=== PATIENT | male | born 1985 | race Caucasian/White ===

== ENCOUNTER 2018-05-13 11:29 | Inpatient (IN) | payer MEDICAID ==
[~2018-05-13] VITALS: Ht 165.1 cm; Wt 68.0 kg
[2018-05-13 11:36] VITALS: BP 124/69
--- NOTE | 2018-05-13 11:43 | NUR ---
Patient ambulated to bed 3. RN evaluating patient at bedside.
--- NOTE | 2018-05-13 11:45 | NUR ---
PATIENT PRESENTS TO ED WITH C/O ABDOMINAL PAIN X 3 DAYS; DENIES N/V/D OR DIZZINESS HX; DENIES RX; DENIES SKIN IS PINK/WARM/DRY; AAOX4 WITH EVEN AND STEADY GAIT; LUNGS CLEAR BL; HR EVEN AND REGULAR; PT DENIES ANY FEVER, CP, SOB, OR COUGH AT THIS TIME; PATIENT STATES PAIN OF 10/10 AT THIS TIME; VSS; PATIENT POSITIONED FOR COMFORT; HOB ELEVATED; BEDRAILS UP X2; BED DOWN. ER MD MADE AWARE OF PT STATUS.
[2018-05-13] MEDS ORDERED: NACL 0.9% 1,000 ML IV SCH (12:16)
[2018-05-13] MEDS ORDERED: MORPHINE SULFATE 2 MG/ML SYR IVP ONE (12:20)
[2018-05-13] MEDS ORDERED: KETOROLAC 30 MG/ML VIAL IVP ONE (12:20)
[2018-05-13] MEDS ORDERED: GLYCOPYRROLATE 0.2 MG/ML VIAL IV ONE (12:20)
[2018-05-13] MEDS ORDERED: METOCLOPRAMIDE 10 MG/2 ML INJ VIAL IVP ONE (12:20)
--- NOTE | 2018-05-13 13:00 | NUR ---
Patient appears to be resting comfortably in bed. Vital Signs within normal limits. Respirations even and unlabored.
[2018-05-13 13:20] LABS: HEMATOCRIT 38.9 % (36-52); HEMOGLOBIN 13.3 g/dL (12.0-18.0); MEAN CORPUSCULAR HEMOGLOBIN 31 pg (27-31); MEAN CORPUSCULAR HGB CONC 34 g/dL (33-37); PLATELET COUNT (AUTO) 198 K/uL (140-450); RED BLOOD CELL COUNT(AUTO) 4.36 MIL/uL (4.20-6.10); RED CELL DISTRIBUTION WIDTH 13.1 % (11.6-13.7); WHITE BLOOD COUNT (AUTO) 13.1 K/uL (4.8-10.8)
[2018-05-13 13:29] LABS: ANION GAP 11.9 (8-16); CARBON DIOXIDE 25.8 mmol/L (21-32); CREATININE 0.7 mg/dL (0.7-1.3); POTASSIUM 3.7 mmol/L (3.5-5.1)
[2018-05-13 13:32] LABS: ALBUMIN 3.1 g/dL (3.4-5.0); BASOPHILS % (MANUAL) 0 % (0-2); EOSINOPHILS % (MANUAL) 0 % (0-4); LYMPHOCYTES % (MANUAL) 12 % (20-46); MONOCYTES % (MANUAL) 5 % (5-12); TOTAL BILIRUBIN 0.4 mg/dL (0.0-1.0)
[2018-05-13] MEDS ORDERED: PIPERACILLIN/TAZOBACTAM 3.375 GM in DEXTROSE 5% 50 ML IV ONE (13:40)
[2018-05-13 13:41] LABS: BILIRUBIN,URINE NEGATIVE (NEGATIVE); BLOOD, URINE NEGATIVE (NEGATIVE); COLOR,URINE YELLOW (YELLOW); LEUKOCYTE ESTERASE ,URINE NEGATIVE (NEGATIVE); NITRITE, URINE NEGATIVE (NEGATIVE); UGLUCOSE NEGATIVE (NEGATIVE)
[2018-05-13 13:42] LABS: APPEARANCE,URINE SLIGHTLY HAZY (CLEAR)
[2018-05-13 13:50] LABS: RBC,URINE NONE SEEN /HPF (0-5); WBC,URINE 0-5 (RARE) /HPF (0-5)
[2018-05-13] MEDS ORDERED: PIPERACILLIN/TAZOBACTAM 3.375 GM VIAL IV ONE (13:54)
[2018-05-13 14:05] LABS: BARBITURATE, URINE NEG. ng/ml (NEG <=200); BENZODIAZEPINE, URINE NEG. ng/mL (NEG <=200); CANNABINOID, URINE NEG. ng/mL (NEG <=50); COCAINE, URINE NEG. ng/mL (NEG <=300); OPIATE, URINE NEG. ng/mL (NEG <=2000); PHENCYCLIDINE SCREEN,URINE NEG. ng/mL (NEG <=25)
--- NOTE | 2018-05-13 14:06 | NUR ---
AT BEDSIDE, PATIENT RESTING
--- NOTE | 2018-05-13 14:55 | NUR ---
Dr. Perea evaluating patient at bedside.
[2018-05-13] MEDS ORDERED: DOCUSATE SODIUM 100 MG GELCAP PO PRN (15:35)
[2018-05-13] MEDS ORDERED: KETOROLAC 30 MG/ML VIAL IM PRN (15:35)
[2018-05-13] MEDS ORDERED: MORPHINE SULFATE 2 MG/ML SYR IVP PRN (15:35)
[2018-05-13] MEDS ORDERED: METOCLOPRAMIDE 10 MG/2 ML INJ VIAL IVP PRN (15:35)
[2018-05-13] MEDS ORDERED: HYDROcodone/APAP 5/325 MG 1 TAB TAB PO PRN (15:35)
[2018-05-13] MEDS ORDERED: ACETAMINOPHEN 325 MG TAB PO PRN (15:35)
[2018-05-13 16:13] LABS: PROTHROMBIN TIME 10.5 secs (10.8-13.4)
--- NOTE | 2018-05-13 16:45 | NUR ---
Patient will be admitted to care of DR. CHILDERS. Admited to TELE. Will go to [id number]. Belongings list completed. Report to LAINE BLEDSOE.
[2018-05-13 17:00] VITALS: BP 120/70
--- NOTE | 2018-05-13 17:00 | NUR ---
ADMITTED PT FROM ER, PT AWAKE, ALERT, AND ORIENTED. ON ROOM AIR, NO S/S OF RESPIRATORY DISTRESS NOTED. PT HAS IV TO RIGHT AC # 20, SITE INTACT AND PATENT. PT ABLE TO MOVE ALL HIS EXTREMITIES. PT STATED PAIN TO RIGHT LOWER ABD BUT IT IS TOLERABLE. PT'S AT BEDSIDE. MRSA SWAB COLLECTED, CALL LIGHT IN REACH, ORIENTED PT ENVIRONMENT, WILL CONTINUE TO MONITOR.
[2018-05-13] MEDS: NACL 0.9% 1,000 ML IV SCH (17:30)
--- NOTE | 2018-05-13 19:10 | NUR ---
REPORT GIVEN TO PM NURSE. PT RESTING IN BED, NO S/S OF RESPIRATORY DISTRESS NOTED.
--- NOTE | 2018-05-13 19:11 | NUR ---
REPORT RECEIVED FROM AM NURSE. PT IN STABLE CONDITION. AAOX4. INTRODUCED SELF AND BOARD UPDATED. HEART SOUNDS NORMAL. LUNG SOUNDS CLEAR. BOWEL SOUNDS ACTIVE X4 QUADRANTS. IV SITE PATENT AND INTACT 20G R AC. SKIN WARM, DRY, AND INTACT. BED LOCKED IN LOW POSITION. CALL AL[place]A WITHIN REACH. WILL CONTINUE TO MONITOR.
[2018-05-13 20:00] VITALS: BP 129/76
--- NOTE | 2018-05-13 20:25 | NUR ---
PM MEDS GIVEN. PT TOLERATED WELL.
[2018-05-13] MEDS: PIPER/TAZO 3.375GM/D5W PREMIX 50 ML IV SCH (20:27)
--- NOTE | 2018-05-13 21:06 | NUR ---
MORPHINE GIVEN FOR PAIN 08/29. PT TOLERATED WELL.
--- NOTE | 2018-05-13 22:23 | NUR ---
TORADOL GIVEN FOR BREAKTHROUGH PAIN OF 8/10. PT HAS FACIAL GRIMACE AND GUARDING SITE.
[2018-05-14] VITALS: BP 122/65
--- NOTE | 2018-05-14 00:15 | NUR ---
PT LAYING SUPINE IN BED ASLEEP BUT AROUSABLE. ASKED ABOUT THE PAIN AND IT WAS RATED 2/10.
[2018-05-14] MEDS: NACL 0.9% 1,000 ML IV SCH (01:31)
--- NOTE | 2018-05-14 03:15 | NUR ---
PT ASLEEP BUT AROUSABLE. SLEEPING COMFORTABLY LEFT LATERAL BUT AWAKENED WHEN CHANGING IV BAG. PT IN STABLE CONDITION.
[2018-05-14 04:00] VITALS: BP 115/72
[2018-05-14] MEDS: PIPER/TAZO 3.375GM/D5W PREMIX 50 ML IV SCH ×3 (04:08→20:17)
--- NOTE | 2018-05-14 05:15 | NUR ---
PT NEEDED TO USE THE RESTROOM. DC IV AND SCD'S. REINSERTED UPON RETURNING TO BED.
--- NOTE | 2018-05-14 07:20 | NUR ---
REPORT GIVEN TO AM NURSE. PT IN STABLE CONDITION.
[2018-05-14 07:56] LABS: BASOPHILS # (AUTO) 0.1 K/uL (0.00-0.22); BASOPHILS % (AUTO) 0.6 % (0.0-2.0); EOSINOPHILS # (AUTO) 0.1 K/uL (0-0.4); EOSINOPHILS % (AUTO) 0.6 % (0.0-4.0); HEMATOCRIT 42.4 % (36-52); HEMOGLOBIN 14.8 g/dL (12.0-18.0); LYMPHOCYTES # (AUTO) 1.3 K/uL (2.0-11.5); LYMPHOCYTES % (AUTO) 11.9 % (20.5-51.1); MEAN CORPUSCULAR HEMOGLOBIN 31 pg (27-31); MEAN CORPUSCULAR HGB CONC 35 g/dL (33-37); MEAN CORPUSCULAR VOLUME 89.3 fL (80-94); MONOCYTES # (AUTO) 0.7 K/uL (0.8-1.0); MONOCYTES % (AUTO) 6.9 % (1.7-9.3); NEUTROPHILS # (AUTO) 8.4 K/uL (1.8-7.7); PLATELET COUNT (AUTO) 222 K/uL (140-450); RED BLOOD CELL COUNT(AUTO) 4.75 MIL/uL (4.20-6.10); RED CELL DISTRIBUTION WIDTH 13.1 % (11.6-13.7); WHITE BLOOD COUNT (AUTO) 10.6 K/uL (4.8-10.8)
[2018-05-14 08:00] VITALS: BP 125/72
[2018-05-14] MEDS: DEXT 5% /NACL 0.9% 1,000 ML IV SCH ×2 (08:00→17:11)
--- NOTE | 2018-05-14 08:00 | NUR ---
PT BEING PREPARED TO TRANSFER TO THE OR. SO, 5% DEXTROSE ,0.9 NS WAS NOT ADMINISTERED.
[2018-05-14 08:06] LABS: CHOL/HDL RATIO 3.6 (1-4.5); MAGNESIUM 1.7 mg/dL (1.8-2.4); PHOSPHORUS 2.7 mg/dL (2.5-4.9)
[2018-05-14 08:08] LABS: ANION GAP 11.7 (8-16); CREATININE 0.7 mg/dL (0.7-1.3); POTASSIUM 3.7 mmol/L (3.5-5.1)
--- NOTE | 2018-05-14 08:20 | NUR ---
PT LEFT FOR SURGERY WITH OR NURSE. PT CONSENT SIGNED FORM PRESENT WITH ON PT CHART. OR NURSE CHUCK AN SURVEILLANCE SPECIALIST FOR PT. 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 PT FAMILY AT BEDSIDE. PT STABLE. PER OR NURSE WOODS, PT WILL BE BACK IN 2 HOURS .
[2018-05-14] MEDS ORDERED: BUPIVACAINE MPF 0.25% 10 ML VIAL INJ ONE (08:48)
[2018-05-14] MEDS: LACTOBACILLUS RHAMNOSUS GG 1 EACH CAP PO SCH (09:00)
[2018-05-14] MEDS ORDERED: fentaNYL 0.05 MG/ML VIAL ONE (09:01)
[2018-05-14] MEDS ORDERED: HYDROmorphone PFS 2 MG/ML SYR ONE (09:01)
[2018-05-14] MEDS ORDERED: ROCURONIUM 50 MG/5 ML VIAL IV ONE (09:02)
[2018-05-14] MEDS ORDERED: KETOROLAC 30 MG/ML VIAL ONE (09:02)
[2018-05-14] MEDS ORDERED: DESFLURANE 240 ML BTL INH ONE (09:02)
[2018-05-14] MEDS ORDERED: DEXAMETHASONE 4 MG/ML VIAL ONE (09:02)
[2018-05-14] MEDS ORDERED: GLYCOPYRROLATE 0.2 MG/ML VIAL ONE (09:02)
[2018-05-14] MEDS ORDERED: ONDANSETRON 4 MG/2 ML VIAL ONE (09:02)
[2018-05-14] MEDS ORDERED: NEOSTIGMINE 1:1000 10 MG/10 ML VIAL ONE (09:02)
[2018-05-14] MEDS ORDERED: SUCCINYLCHOLINE CHLORIDE 200 MG/10 ML VIAL IVP ONE (09:02)
[2018-05-14] MEDS ORDERED: ONDANSETRON 4 MG/2 ML VIAL IVP PRN (09:25)
[2018-05-14] MEDS ORDERED: HYDROmorphone 1 MG/ML AMP IVP PRN ×2 (09:25→10:30)
--- NOTE | 2018-05-14 10:19 | NUR ---
PATIENT HAS BEEN SCREENED AND CATEGORIZED LOW NUTRITION RISK. PATIENT WILL BE SEEN WITHIN 7 DAYS OF ADMISSION. 05/20/[address]
[2018-05-14] MEDS ORDERED: MORPHINE SULFATE 2 MG/ML SYR IVP PRN (10:30)
[2018-05-14] MEDS ORDERED: MORPHINE SULFATE 4 MG/ML SYR IV PRN (10:30)
[2018-05-14] MEDS ORDERED: ONDANSETRON 4 MG/2 ML VIAL IV PRN (10:30)
[2018-05-14] MEDS ORDERED: HYDROcodone/APAP 5/325 MG 1 TAB TAB PO PRN (10:30)
--- NOTE | 2018-05-14 11:20 | NUR ---
RECEIVED PT FROM OR NURSE AFTER LAPAROSCOPIC APPENDECTOMY. PER OR NURSE WILLIAM, PT EBL WAS 5 ML. TOTAL VOLUME THAT WAS GIVEN WAS 1500 ML. PT VS NOTED 125/72, T 98.0, 02 98%, RR 16. PT DENIES PAIN . PT HAS NO SIGN OF DISTRESS. AOX4. SPEAKS CLEARLY. PT HAS 3 BANDAGES AROUND THE BELLY AREA. NO DRAINAGE, NO BLOOD LOSS NOTED. PT STABLE AT THIS TIME. ALL SAFETY MEASURE IN PLACE. RAISED THE HOB AT 30 DEGREE. WILL CONTINUE TO MONITOR PT.
--- NOTE | 2018-05-14 13:23 | NUR ---
ADMINISTERED MEDS ORDERED. PT LYING ON BED. DENIES ANY PAIN. PT TOLERATED WELL MEDS. PT O2 SAT 95% ON RA.PT AOX4. SPEAKING WELL AND CLEARLY. NO SIGN OF DISTRESS. BED AT LOW POSITION. CALL LIGHT WITHIN REACH. WILL CONTINUE TO MONITOR PT.
--- NOTE | 2018-05-14 16:04 | NUR ---
CHECKED ON PT. PT LYING ON BED, WATCHING TV. NO SIGN OF DISTRESS. PT USING INCENTIVESPIROMETER. RETURN DEMONSTRATION. PT TOLERATING WELL. O2 SAT 95 % ON RA. ALL SAFETY MEASURE IN PLACE . WILL CONTINUE TO MONITOR PT.
--- NOTE | 2018-05-14 18:00 | NUR ---
CHECKED O PT. LYING ON BED. NO SIGN OF DISTRESS. IV INFUSING WELL. PT FAMILY AT THE BEDSIDE. WILL CONTINUE TO MONITOR PT.
--- NOTE | 2018-05-14 19:30 | NUR ---
ENDORSED PT TO PM NURSE FOR CONTINUITY OF CARE. PT STABLE AT THIS TIME.
--- NOTE | 2018-05-14 19:31 | NUR ---
RECEIVED REPORT FROM DAY SHIFT NURSE. AAOX4. NO C/O PAIN. NO RESP DISTRESS NOTED. ON ROOM AIR. 3 BANDAGES ON ABD., CLEAN, DRY AND INTACT. DISCUSSED PLAN OF CARE, PT VERBALIZED UNDERSTANDING. SAFETY PRECAUTION IN PLACE. CALL LIGHT WITHIN REACH.
--- NOTE | 2018-05-14 21:30 | NUR ---
PT IN BED, AWAKE. NO C/O PAIN. ALL NEEDS MET AT THIS TIME. CALL LIGHT WITHIN REACH.
--- NOTE | 2018-05-14 23:45 | NUR ---
PT RESTING IN BED WITH EYES CLOSED. RESP EVEN AND UNLABORED. NO S/S OF PAIN. CALL LIGHT WITHIN REACH.
[2018-05-15 01:33] VITALS: BP 142/64
--- NOTE | 2018-05-15 02:50 | NUR ---
PT C/O ABD PAIN 6/10 SCALE. MORPHINE 4 MG IVP GIVEN ORDERED.
[2018-05-15] MEDS: DEXT 5% /NACL 0.9% 1,000 ML IV SCH (03:15)
--- NOTE | 2018-05-15 05:15 | NUR ---
PT IN BED, AWAKE. DENIES PAIN. NO RESP DISTRESS NOTED. CALL LIGHT WITHIN REACH.
[2018-05-15] MEDS: PIPER/TAZO 3.375GM/D5W PREMIX 50 ML IV SCH (05:33)
--- NOTE | 2018-05-15 07:15 | NUR ---
ENDORSED PT TO DAY SHIFT NURSE. PT IN STABLE CONDITION.
[2018-05-15 07:16] LABS: BASOPHILS % (AUTO) 0.4 % (0.0-2.0); EOSINOPHILS % (AUTO) 0.3 % (0.0-4.0); HEMATOCRIT 37.9 % (36-52); LYMPHOCYTES % (AUTO) 18.5 % (20.5-51.1); MEAN CORPUSCULAR HEMOGLOBIN 31 pg (27-31); MEAN CORPUSCULAR HGB CONC 34 g/dL (33-37); MEAN CORPUSCULAR VOLUME 89.9 fL (80-94); MONOCYTES # (AUTO) 1.1 K/uL (0.8-1.0); MONOCYTES % (AUTO) 10.8 % (1.7-9.3); NEUTROPHILS # (AUTO) 7.4 K/uL (1.8-7.7); PLATELET COUNT (AUTO) 219 K/uL (140-450); RED BLOOD CELL COUNT(AUTO) 4.22 MIL/uL (4.20-6.10); WHITE BLOOD COUNT (AUTO) 10.6 K/uL (4.8-10.8)
--- NOTE | 2018-05-15 07:30 | NUR ---
RECEIVED PT AAOX4. NO SOB NOTED. NO C/O PAIN AT THIS TIME. IV TO RT AC PATENT AND INTACT. CHEST CLEAR. ABDOMEN SOFT, BOWEL SOUNDS PRESENT. 3 SMALL BANDAIDS ON ABDOMEN DRY AND INTACT. INSTRUCTED PT TO CALL FOR ASSISTANCE, CALL LIGHT WITHIN REACH, PT VERBALIZED UNDERSTANDING.
[2018-05-15 08:00] VITALS: BP 120/77
[2018-05-15 08:37] LABS: MAGNESIUM 1.7 mg/dL (1.8-2.4)
[2018-05-15 08:57] LABS: CREATININE 0.7 mg/dL (0.7-1.3); POTASSIUM 3.7 mmol/L (3.5-5.1)
[2018-05-15 09:09] LABS: ANION GAP 11.1 (8-16); CARBON DIOXIDE 27.6 mmol/L (21-32)
[2018-05-15] MEDS: LACTOBACILLUS RHAMNOSUS GG 1 EACH CAP PO SCH (09:27)
--- NOTE | 2018-05-15 09:35 | NUR ---
PT TOLERATED REGULAR DIET, NO N&V NOTED.
--- NOTE | 2018-05-15 11:40 | NUR ---
PT AMBULATING IN THE HALLWAY, ACTIVITY TOLERATED WELL. PT STATED HE IS BEEN PASSING GAS.
[2018-05-15] MEDS ORDERED: ACET-9525 PO (12:51)
[2018-05-15] MEDS ORDERED: DOCU-299 PO (12:51)
[2018-05-15] MEDS ORDERED: BENZ1LOZ98 MM (12:51)
--- NOTE | 2018-05-15 13:00 | NUR ---
PT TOLERATED LUNCH WELL, NO N&V NOTED.
[2018-05-15] MEDS ORDERED: AMOX-999 PO (13:16)
--- NOTE | 2018-05-15 15:10 | NUR ---
DISCHARGE INSTRUCTIONS AND PRESCRIPTIONS GIVEN TO PT AND ALCIRA, BOTH VERBALIZED FULL UNDERSTANDING OF THE TEACHINGS AND INSTRUCTIONS AND THE NEED TO FOLLOW UP WITH DR. MARTINEZ. ARM BANDS AND IV REMOVED, CANNULA TIP INTACT.
--- NOTE | 2018-05-15 15:20 | NUR ---
PT ESCORTED OUT IN STABLE CONDITION, AMBULATORY. NO COMPLAINTS MADE. D/C HOME WITH .
== END 2018-05-15 15:20 | disposition home or self-care (01) | DRG 225 ==
LOC: MED 11:29 → UNDOADMIN 15:08 → MTU 15:08
PROVIDERS: ADMIT Family Medicine; ATTEND Family Medicine
PROC: 0DTJ4ZZ Resection of Appendix, Percutaneous Endoscopic Approach (ICD-10-PCS; principal; 2018-05-14 08:50)
DX: K35.80 Unspecified acute appendicitis (principal); N17.0 Acute kidney failure with tubular necrosis; K38.1 Appendicular concretions; E44.0 Moderate protein-calorie malnutrition; Z68.25 Body mass index [BMI] 25.0-25.9, adult; E83.51 Hypocalcemia
CPT/HCPCS: 36415; 80048; 80053; 80305; 81001; 82150; 82374; 83036; 83690; 83735; 84100; 84134; 84443; 85025; 85610; 85730; 86886; 86900; 86901; 87081; 88304; 96361; 96374; 96375; 99285; J0330; J1100; J1170; J1885; J2270; J2405; J2543; J2710; J2765; J3010; J3490; J7030; J7042; J7060